=== PATIENT | female | born 2000 | race Two or more races ===

== ENCOUNTER 2022-12-23 12:54 | Inpatient (IN) ==
[~2022-12-23] VITALS: Ht 160 cm; Wt 75.7 kg
[2022-12-23 13:11] VITALS: BP 134/86
[2022-12-23] MEDS ORDERED: TUMS750C22 PO (13:26)
[2022-12-23] MEDS ORDERED: PRENTAB9 PO (13:26)
[2022-12-23] MEDS ORDERED: LACTATED RINGER'S 1000 ML IV STA (13:42)
[2022-12-23] MEDS ORDERED: OXYTOCIN DRIP 30 UNITS in IV 1 EA IV PRN ×4 (13:45)
[2022-12-23] MEDS ORDERED: LORazepam 1 MG TAB PO PRN (13:45)
[2022-12-23] MEDS ORDERED: TRANEXAMIC ACID INJection 1,000 MG in NS 100 ML IV PRN (13:45)
[2022-12-23] MEDS ORDERED: RHOGAM 300MCG (1500IU) INJ IM SCH (13:45)
[2022-12-23] MEDS ORDERED: LIDOCAINE 1% MDV 20ML VIAL INFIL PRN (13:45)
[2022-12-23] MEDS ORDERED: CARBOPROST TROMETHAMINE 250 MCG/ML AMP IM PRN (13:45)
[2022-12-23] MEDS ORDERED: METHYLERGONOVINE MALEATE 0.2MG/ML 1ML VIAL IM PRN (13:45)
[2022-12-23 14:23] LABS: HEMOGLOBIN 12.9 g/dl (12.0-15.5); MEAN CORPUSCULAR HEMOGLOBIN 28.7 pg (27.0-33.0); MEAN CORPUSCULAR HGB CONC 33.9 g/dl (32.0-36.5); MEAN CORPUSCULAR VOLUME 84.4 fl (80.0-96.0); PLATELET COUNT, AUTOMATED 262 10^3/uL (150-450); WHITE BLOOD COUNT 8.6 10^3/uL (4.0-10.0)
[2022-12-23 14:48] LABS: ALBUMIN 3.2 G/DL (3.2-5.2); ALKALINE PHOSPHATASE 124 U/L (46-116); ALT/SGPT 20 U/L (7.0-40); AST/SGOT 12 U/L (<34); BILIRUBIN,TOTAL 0.2 MG/DL (0.3-1.2); BLOOD UREA NITROGEN 5 MG/DL (9-23); CALCIUM LEVEL 9.5 MG/DL (8.5-10.1); CARBON DIOXIDE LEVEL 22 MMOL/L (20-31); CHLORIDE LEVEL 110 MMOL/L (98-107); CREATININE FOR GFR 0.52 MG/DL (0.55-1.30); GLOMERULAR FILTRATION RATE > 60.0 (>60); GLUCOSE, FASTING 83 MG/DL (60-100); POTASSIUM SERUM 4.1 MMOL/L (3.5-5.1); SODIUM LEVEL 141 MMOL/L (136-145); TOTAL PROTEIN 6.8 G/DL (5.7-8.2)
[2022-12-23 14:50] LABS: THYROID STIMULATING HORMONE 3.616 uIU/ML (0.55-4.78)
[2022-12-23 14:51] LABS: THYROXINE (T4) 15.9 UG/DL (4.5-10.9)
[2022-12-23 14:52] LABS: INR 1.04; PROTHROMBIN TIME 13.3 SECONDS (12.5-14.5)
[2022-12-23 15:04] LABS: PARTIAL THROMBOPLASTIN TIME 27.7 SECONDS (24.8-34.2)
[2022-12-23 15:11] LABS: HEMOGLOBIN A1c 5.3 % (4.0-6.0)
[2022-12-23] MEDS: miSOPROStol 50MCG 1/2 TABLET SL PRN ×2 (15:30→19:50)
[2022-12-23] MEDS: LR 1,000 ML IV SCH ×2 (15:33→23:00)
[2022-12-23 15:46] VITALS: BP 144/86
[2022-12-23 17:00] VITALS: BP 136/77
[2022-12-23 18:13] VITALS: BP 130/78
[2022-12-23] MEDS ORDERED: PROMETHAZINE 25MG/ML 1ML VIAL IV PRN (19:10)
[2022-12-23] MEDS ORDERED: MORPHINE 10 MG/ML 1ML VIAL IV PRN (19:10)
[2022-12-23 19:19] VITALS: BP 132/84
[2022-12-23 21:47] VITALS: BP 121/74
[2022-12-24] VITALS (14 sets, daily range): BP systolic 122–147; BP diastolic 73–104
[2022-12-24] MEDS: miSOPROStol 50MCG 1/2 TABLET SL PRN ×3 (00:45→09:57)
[2022-12-24] MEDS: ONDANSETRON 4MG 2ML VIAL IV PRN (07:24)
[2022-12-24] MEDS ORDERED: miSOPROStol 100MCG TABLET PO ONE (14:15)
[2022-12-24 19:17] LABS: URIC ACID 4.8 MG/DL (3.1-7.8)
[2022-12-25] VITALS (32 sets, daily range): BP systolic 98–154; BP diastolic 51–90; O2SAT 98
[2022-12-25] MEDS ORDERED: OXYTOCIN DRIP 30 UNITS in IV 1 EA IV SCH ×2 (03:10→14:15)
[2022-12-25] MEDS ORDERED: LR 1,000 ML IV SCH (03:10)
[2022-12-25] MEDS: LR 1,000 ML IV SCH ×4 (03:33→22:15)
[2022-12-25] MEDS: ONDANSETRON 4MG 2ML VIAL IV PRN (08:17)
[2022-12-25] MEDS ORDERED: NALOXONE INJ 0.4MG/1ML VIAL IV PRN (09:15)
[2022-12-25] MEDS ORDERED: diphenhydrAMINE 50MG/ML VIAL IV PRN (09:15)
[2022-12-25] MEDS ORDERED: EPIDURAL/PCA KEYS XX PRN (09:15)
[2022-12-25] MEDS ORDERED: ePHEDrine SULFATE 25 MG/5 ML(5MG/ML) SYRINGE IVP PRN (09:15)
[2022-12-25] MEDS ORDERED: LR 500 ML IV PRN (09:15)
[2022-12-25] MEDS ORDERED: ONDANSETRON 4MG 2ML VIAL IV PRN (09:15)
[2022-12-25] MEDS ORDERED: FENTANYL/ROPIVACAINE/NACL BAG 100 ML EPIDURAL SCH (09:15)
[2022-12-25] MEDS ORDERED: DIBUCAINE 1% OINTMENT 30GM TOP PRN (13:50)
[2022-12-25] MEDS ORDERED: RHOGAM 300MCG (1500IU) INJ IM SCH (13:50)
[2022-12-25] MEDS ORDERED: DOCUSATE SODIUM 100MG CAPSULE PO PRN (13:50)
[2022-12-25] MEDS ORDERED: METHYLERGONOVINE MALEATE 0.2MG/ML 1ML VIAL IM PRN (13:50)
[2022-12-25] MEDS: ACETAMINOPHEN 500 MG TAB PO SCH ×2 (16:35→23:06)
[2022-12-25] MEDS: IBUPROFEN 800 MG TAB PO SCH ×2 (16:35→23:09)
[2022-12-26] MEDS: ACETAMINOPHEN 500 MG TAB PO SCH (03:00)
[2022-12-26] MEDS: IBUPROFEN 800 MG TAB PO SCH (06:00)
[2022-12-26 06:15] LABS: HEMATOCRIT 31.1 % (36.0-47.0); HEMOGLOBIN 10.6 g/dl (12.0-15.5); MEAN CORPUSCULAR HGB CONC 34.1 g/dl (32.0-36.5); PLATELET COUNT, AUTOMATED 187 10^3/uL (150-450); RED BLOOD COUNT 3.66 10^6/uL (4.00-5.40); WHITE BLOOD COUNT 7.6 10^3/uL (4.0-10.0)
[2022-12-26] MEDS ORDERED: ACET-683 PO (07:13)
[2022-12-26] MEDS ORDERED: IBUP80TA PO (07:13)
[2022-12-26 08:07] VITALS: BP 156/92; TEMP 98.1; O2SAT 97
[2022-12-26] MEDS ORDERED: PRENATAL VITAMINS CHEWABLE TABLET PO SCH (09:00)
[2022-12-27] MEDS ORDERED: MEASLES,MUMPS,RUBELLA VACCINE INJ (MMR-II) SC.IMMUN ONE (09:00)
== END 2022-12-26 08:10 | disposition home or self-care (01) | DRG 807 ==
LOC: M LDI 12:54 → M PED 12-25 22:54
PROVIDERS: ADMIT Advanced Practice Midwife; ATTEND Advanced Practice Midwife
PROC: 3E0P7VZ Introduction of Hormone into Female Reproductive, Via Natural or Artificial Opening (ICD-10-PCS; 2022-12-23)
PROC: 10E0XZZ Delivery of Products of Conception, External Approach (ICD-10-PCS; principal; 2022-12-25)
DX: O36.4XX0 Maternal care for intrauterine death, not applicable or unspecified (principal); Z37.1 Single stillbirth; Z3A.36 36 weeks gestation of pregnancy

== ENCOUNTER 2023-11-07 13:58 | Outpatient (CLI) | payer OTHER ==
[~2023-11-07] VITALS: Ht 165.1 cm; Wt 70.0 kg
[2023-11-07 14:25] VITALS: BP 116/76
[2023-11-07] MEDS ORDERED: HOME MED LIST COMPLETE! XX SCH (14:25)
== END 2023-11-07 15:38 | disposition home or self-care (01) ==
LOC: M LDO 13:58
PROVIDERS: ATTEND Obstetrics & Gynecology
DX: O98.512 Other viral diseases complicating pregnancy, second trimester (principal); O99.342 Other mental disorders complicating pregnancy, second trimester; U07.1 COVID-19; F32.A Depression, unspecified; Z3A.22 22 weeks gestation of pregnancy; Z87.59 Personal history of other complications of pregnancy, childbirth and the puerperium
CPT/HCPCS: 76815; G0463

== ENCOUNTER → 2023-11-07 | Outpatient (REF) ==
[~2023-11-07] MED LIST: ACET-683 PO; IBUP80TA PO; PRENTAB9 PO; TUMS750C22 PO
== END ==
LOC: M EMP 12:31
PROVIDERS: ATTEND Family Medicine
DX: Z11.52 Encounter for screening for COVID-19 (principal)

== ENCOUNTER 2023-12-22 11:22 | Outpatient (CLI) | payer OTHER ==
[~2023-12-22] VITALS: Ht 160 cm; Wt 72.1 kg
[2023-12-22] MEDS ORDERED: ASPI81CH33 PO (11:38)
[2023-12-22] MEDS ORDERED: HOME MED LIST COMPLETE! XX SCH (11:40)
[2023-12-22 11:41] VITALS: BP 109/64
== END 2023-12-22 12:47 | disposition home or self-care (01) ==
LOC: M LDO 11:22
PROVIDERS: ATTEND Obstetrics & Gynecology
DX: O36.8130 Decreased fetal movements, third trimester, not applicable or unspecified (principal); O32.1XX9 Maternal care for breech presentation, other fetus; Z3A.28 28 weeks gestation of pregnancy
CPT/HCPCS: 59025; 76815; G0463

== ENCOUNTER 2024-01-13 12:43 | Outpatient (CLI) | payer OTHER ==
[~2024-01-13] VITALS: Ht 160 cm; Wt 72.9 kg
[~2024-01-13 12:43] MED LIST changes: +ASPI81CH33 PO
[2024-01-13] MEDS ORDERED: TUMS500C PO (13:02)
[2024-01-13 13:05] VITALS: BP 113/73
[2024-01-13] MEDS: LR 1,000 ML IV ONE (13:32)
== END 2024-01-13 15:20 | disposition home or self-care (01) ==
LOC: M LDO 12:43
PROVIDERS: ATTEND Obstetrics & Gynecology
DX: O26.893 Other specified pregnancy related conditions, third trimester (principal); R25.2 Cramp and spasm; Z3A.31 31 weeks gestation of pregnancy; Z87.59 Personal history of other complications of pregnancy, childbirth and the puerperium
CPT/HCPCS: 59025; 81001; G0463

== ENCOUNTER → 2024-01-25 | Outpatient (REF) | payer OTHER ==
[~2024-01-25] MED LIST changes: +TUMS500C PO
== END ==
LOC: M SFHCWAGY 14:50
PROVIDERS: ATTEND Obstetrics & Gynecology
DX: Z34.83 Encounter for supervision of other normal pregnancy, third trimester (principal)

== ENCOUNTER 2024-02-11 09:09 | Outpatient (CLI) | payer OTHER ==
[~2024-02-11] VITALS: Ht 160 cm; Wt 76.0 kg
[2024-02-11 09:21] VITALS: BP 118/76
[2024-02-11] MEDS ORDERED: HOME MED LIST COMPLETE! XX SCH (09:25)
[2024-02-11] MEDS: BETAMETHASONE SOLUSPAN 6MG/ML 5ML VIAL IM ONE (09:55)
[2024-02-12] MEDS ORDERED: FAMO20TA PO (10:01)
== END 2024-02-11 10:05 | disposition home or self-care (01) ==
LOC: M LDO 09:09
PROVIDERS: ATTEND Obstetrics & Gynecology
DX: O09.293 Supervision of pregnancy with other poor reproductive or obstetric history, third trimester (principal); Z3A.36 36 weeks gestation of pregnancy; Z87.59 Personal history of other complications of pregnancy, childbirth and the puerperium; Z79.82 Long term (current) use of aspirin; Z79.899 Other long term (current) drug therapy
CPT/HCPCS: 59025; 96372; G0463; J0702

== ENCOUNTER 2024-02-12 09:41 | Outpatient (CLI) | payer OTHER ==
[~2024-02-12] VITALS: Ht 160 cm; Wt 75.6 kg
[2024-02-12 09:56] VITALS: BP 121/77
[2024-02-12] MEDS ORDERED: FAMO20TA PO (10:01)
[2024-02-12] MEDS: BETAMETHASONE SOLUSPAN 6MG/ML 5ML VIAL IM ONE (10:09)
== END 2024-02-12 10:24 | disposition home or self-care (01) ==
LOC: M LDO 09:41
PROVIDERS: ATTEND Advanced Practice Midwife
DX: O36.5939 Maternal care for other known or suspected poor fetal growth, third trimester, other fetus (principal); Z87.59 Personal history of other complications of pregnancy, childbirth and the puerperium; Z3A.36 36 weeks gestation of pregnancy
CPT/HCPCS: 59025; 96372; G0463; J0702

== ENCOUNTER 2024-02-13 08:01 | Inpatient (IN) | payer OTHER ==
[~2024-02-13] VITALS: Ht 160 cm; Wt 75.6 kg
[2024-02-13] VITALS (9 sets, daily range): BP systolic 109–121; BP diastolic 62–75; O2SAT 99
[~2024-02-13 08:01] MED LIST changes: +FAMO20TA PO
[2024-02-13] MEDS: LACTATED RINGER'S 1000 ML IV STA (08:26)
[2024-02-13] MEDS ORDERED: TRANEXAMIC ACID INJection 1,000 MG in NS 100 ML IV PRN (08:30)
[2024-02-13] MEDS ORDERED: HOME MED LIST COMPLETE! XX SCH (08:30)
[2024-02-13] MEDS: LR 1,000 ML IV SCH (08:30)
[2024-02-13] MEDS ORDERED: OXYTOCIN DRIP 30 UNITS in IV 1 EA IV PRN (08:30)
[2024-02-13] MEDS ORDERED: CARBOPROST TROMETHAMINE 250 MCG/ML AMP IM PRN (08:30)
[2024-02-13] MEDS ORDERED: LIDOCAINE 1% MDV 20ML VIAL INFIL PRN (08:30)
[2024-02-13] MEDS ORDERED: OXYTOCIN INJ 10UNITS/ML 1ML VIAL IV PRN (08:30)
[2024-02-13] MEDS ORDERED: OXYTOCIN INJ 10UNITS/ML 1ML VIAL IM PRN (08:30)
[2024-02-13 09:36] LABS: HEMATOCRIT 29.6 % (36.0-47.0); MEAN CORPUSCULAR HEMOGLOBIN 27.2 pg (27.0-33.0); MEAN CORPUSCULAR HGB CONC 33.8 g/dl (32.0-36.5); MEAN CORPUSCULAR VOLUME 80.7 fl (80.0-96.0); PLATELET COUNT, AUTOMATED 260 10^3/uL (150-450); RED BLOOD COUNT 3.67 10^6/uL (4.00-5.40); WHITE BLOOD COUNT 8.5 10^3/uL (4.0-10.0)
[2024-02-13] MEDS: miSOPROStol 50MCG 1/2 TABLET PO PRN (09:55)
[2024-02-13 10:45] LABS: HEPATITIS C VIRUS ABY INDEX 0.04 INDEX (<0.8)
[2024-02-14] VITALS (53 sets, daily range): BP systolic 93–137; BP diastolic 53–94; O2SAT 97
[2024-02-14] MEDS: CALCIUM CARBONATE 500 MG CHEW U/D PO PRN (01:03)
[2024-02-14] MEDS: OXYTOCIN DRIP 30 UNITS in IV 1 EA IV SCH (03:15)
[2024-02-14] MEDS ORDERED: LR 500 ML IV PRN (13:10)
[2024-02-14] MEDS ORDERED: diphenhydrAMINE 50MG/ML VIAL IV PRN (13:10)
[2024-02-14] MEDS ORDERED: ONDANSETRON 4MG 2ML VIAL IV PRN (13:10)
[2024-02-14] MEDS ORDERED: NALOXONE INJ 0.4MG/1ML VIAL IV PRN (13:10)
[2024-02-14] MEDS ORDERED: EPIDURAL/PCA KEYS XX PRN (13:10)
[2024-02-14] MEDS: FENTANYL/ROPIVACAINE/NACL BAG 100 ML EPIDURAL SCH (13:40)
[2024-02-14] MEDS: ePHEDrine SULFATE 25 MG/5 ML(5MG/ML) SYRINGE IVP PRN (16:12)
[2024-02-14] MEDS: OXYTOCIN DRIP 30 UNITS in IV 1 EA IV PRN (20:04)
[2024-02-14] MEDS: METHYLERGONOVINE MALEATE 0.2MG/ML 1ML VIAL IM PRN (20:12)
[2024-02-14] MEDS: ONDANSETRON 4MG 2ML VIAL IV PRN (20:23)
[2024-02-14] MEDS ORDERED: RHOGAM 300MCG (1500IU) INJ IM SCH (20:30)
[2024-02-14] MEDS ORDERED: ACETAMINOPHEN 325 MG TAB PO PRN (20:30)
[2024-02-14] MEDS ORDERED: DIBUCAINE 1% OINTMENT 30GM TOP PRN (20:30)
[2024-02-14] MEDS ORDERED: IBUPROFEN 600MG TAB PO PRN (20:30)
[2024-02-14] MEDS ORDERED: METHYLERGONOVINE MALEATE 0.2 MG TAB PO PRN (20:30)
[2024-02-14] MEDS: IBUPROFEN 800 MG TAB PO PRN (23:58)
[2024-02-15 06:08] VITALS: BP 112/66; O2SAT 99
[2024-02-15] MEDS: PRENATAL VITAMINS CHEWABLE TABLET PO SCH (07:37)
[2024-02-15] MEDS: ACETAMINOPHEN 500 MG TAB PO PRN (07:37)
[2024-02-15] MEDS: DOCUSATE SODIUM 100MG CAPSULE PO PRN (12:08)
[2024-02-15 20:36] VITALS: BP 112/71; O2SAT 98
[2024-02-16 06:00] VITALS: BP 115/65; O2SAT 98
[2024-02-16] MEDS ORDERED: ACET-683 PO (07:52)
[2024-02-16] MEDS ORDERED: IBUP80TA PO (07:52)
[2024-02-16] MEDS: MEASLES,MUMPS,RUBELLA VACCINE INJ (MMR-II) SC.IMMUN ONE (08:10)
[2024-02-16] MEDS: FLUZONE VACCINE TRIVALENT PF(2024-25) 0.5ML SYRINGE IM.IMMUN ONE (11:52)
== END 2024-02-16 12:00 | disposition home or self-care (01) | DRG 807 ==
LOC: M LDI 08:01 → M OBS 02-14 21:51
PROVIDERS: ADMIT Obstetrics & Gynecology; ATTEND Obstetrics & Gynecology
PROC: 3E033VJ Introduction of Other Hormone into Peripheral Vein, Percutaneous Approach (ICD-10-PCS; 2024-02-13)
PROC: 3E0P7VZ Introduction of Hormone into Female Reproductive, Via Natural or Artificial Opening (ICD-10-PCS; 2024-02-13)
PROC: 10E0XZZ Delivery of Products of Conception, External Approach (ICD-10-PCS; principal; 2024-02-14)
DX: O69.82X0 Labor and delivery complicated by other cord entanglement, without compression, not applicable or unspecified (principal); Z37.0 Single live birth; Z3A.36 36 weeks gestation of pregnancy; Z87.59 Personal history of other complications of pregnancy, childbirth and the puerperium; O36.0190 Maternal care for anti-D [Rh] antibodies, unspecified trimester, not applicable or unspecified